=== PATIENT | male | born 1990 | race African-American/Black ===

== ENCOUNTER 2018-11-06 12:29 | Emergency (ER) | payer MEDICAID ==
[~2018-11-06] VITALS: Ht 182.9 cm; Wt 110.0 kg
[2018-11-06 12:31] VITALS: BP 136/86
== END 2018-11-06 12:50 | disposition left against medical advice (07) ==
LOC: ER 12:49
DX: T50.901A Poisoning by unspecified drugs, medicaments and biological substances, accidental (unintentional), initial encounter (principal); G92 Toxic encephalopathy; R00.0 Tachycardia, unspecified; Y92.488 Other paved roadways as the place of occurrence of the external cause
CPT/HCPCS: 93005; 99283